=== PATIENT | female | born 1965 | race Caucasian/White ===

== ENCOUNTER 2016-12-12 17:30 | Inpatient (IN) | payer MEDICARE, MEDICAID ==
[~2016-12-12] VITALS: Ht 157.5 cm; Wt 81.6 kg
[~2016-12-12 17:30] MED LIST: ASPIRIN81 MG ORAL; FAMOTIDINE20 MG ORAL; FLECAINIDE ACE100 MG ORAL; GABAPENTIN300 MG ORAL; IRON159 MG PO; LEVEMIR100 UNIT/1 SUBQ; LISINOPRIL20 MG ORAL; METOPROLOL SUC100 MG ORAL; METOPROLOL SUCC50 MG ORAL; MULTIVITAMINS1 EA14 PO; PRAVASTATIN SOD20 M1 ORAL; PREMARIN0.9 MG ORAL; PROVERA2.5 MG ORAL; SPIRONOLACTONE50 MG ORAL; VICTOZA 2-0.6 MG/0.1 SUBQ
--- NOTE | 2016-12-12 18:33 | Emergency Room Report ---
History of Present Illness General Chief Complaint: General Complaint Source: Patient Present Illness HPI Patient present with complaints of dizziness Lightheadedness Patient has a history of hypertension and is on lisinopril Today she began feeling lightheaded and took her blood pressure Blood pressure was reading very low in the 80s Patient continued to be symptomatic and presents to the ER complaints of nausea denies any chest pain or short of breath Denies any fevers or chills denies any change in medications Allergies: Coded Allergies: SUMATRIPTAN (Verified Allergy, Unknown, 04/18/16) Uncoded Allergies: ARTIFICIAL SWEETNERS (Allergy, Unknown, 04/18/16) Patient History Past Medical History: see triage record Pertinent Family History: none Last Menstrual Period: n/a Now: No Reviewed Nursing Documentation: PMH: Agreed, PSxH: Agreed Nursing Documentation-PMH Past Medical History: No History, Except For Hx Cardiac Problems: Yes - aicdmi Hx Hypertension: Yes Hx Pacemaker: Yes - AICD Hx Diabetes: Yes Hx Cancer: No Hx Gastrointestinal Problems: No Hx Neurological Problems: No Review of Systems All Other Systems: negative except mentioned in HPI Physical Exam Vital Signs Date Time Temp Pulse Resp B/P Pulse Ox O2 Delivery O2 Flow Rate FiO2 12/12/16 17:43 98.1 73 18 84/62 96 Room Air Sp02 EP Interpretation: reviewed, normal General Appearance: well appearing, no apparent distress Head: normocephalic, atraumatic Eyes: bilateral eye EOMI, bilateral eye PERRL ENT: hearing grossly normal, normal pharynx, TMs + canals normal, uvula midline Neck: full range of motion, supple, no meningismus, no bony tend Respiratory: lungs clear, normal breath sounds, no rhonchi, no respiratory distress, no retraction, no accessory muscle use Cardiovascular #1: normal peripheral pulses, regular rate, rhythm, no edema, no gallop, no JVD, no murmur Gastrointestinal: normal bowel sounds, non tender, soft, no mass, no organomegaly, non-distended, no guarding, no hernia, no pulsatile mass, no rebound Genitourinary: no CVA tenderness Musculoskeletal: normal inspection Neurologic: oriented x3, responsive, network analyst III-XII nml as tested, motor strength/ tone normal, sensory intact Psychiatric: mood/affect normal Skin: normal color, no rash, warm/dry, palpation normal Lymphatic: normal inspection, no adenopathy Medical Decision Making Diagnostic Impression: Primary Impression: Hypotension Additional Impressions: AICD present, double chamber Prolonged QT interval ER Course Patient is a fairly complex patient with multiple differential to consideration including but not limited to cardiac cardiopulmonary and vascular emergencies Patient otherwise appears asymptomatic Heart rate is appropriate Patient does not appear pale or diaphoretic She is symptomatic with standing and walking however Blood work thus far is appropriate imaging is appropriate Patient was given further hydration and will have inpatient workup Labs Test 12/12/16 17:50 12/12/16 18:30 12/13/16 06:45 12/13/16 08:30 Urine Opiates Screen Negative (NEGATIVE) Urine Barbiturates Screen Negative (NEGATIVE) Phencyclidine (PCP) Screen Negative (NEGATIVE) Urine Amphetamines Screen Positive (NEGATIVE) Urine Benzodiazepines Screen Negative (NEGATIVE) Urine Cocaine Screen Negative (NEGATIVE) Urine Marijuana (THC) Screen Negative (NEGATIVE) White Blood Count 9.2 K/UL (4.8-10.8) 9.1 K/UL (4.8-10.8) Red Blood Count 4.23 M/UL (4.20-5.40) 3.73 M/UL (4.20-5.40) Hemoglobin 13.8 G/DL (12.0-16.0) 12.5 G/DL (12.0-16.0) Hematocrit 41.3 % (37.0-47.0) 36.5 % (37.0-47.0) Mean Corpuscular Volume 98 FL (80-99) 98 FL (80-99) Mean Corpuscular Hemoglobin 32.7 PG (27.0-31.0) 33.5 PG (27.0-31.0) Mean Corpuscular Hemoglobin Concent 33.5 G/DL (32.0-36.0) 34.2 G/DL (32.0-36.0) Red Cell Distribution Width 11.2 % (11.6-14.8) 11.1 % (11.6-14.8) Platelet Count 338 K/UL (150-450) 265 K/UL (150-450) Mean Platelet Volume 5.8 FL (6.5-10.1) 5.9 FL (6.5-10.1) Neutrophils (%) (Auto) 69.7 % (45.0-75.0) 56.2 % (45.0-75.0) Lymphocytes (%) (Auto) 18.6 % (20.0-45.0) 31.9 % (20.0-45.0) Monocytes (%) (Auto) 8.8 % (1.0-10.0) 9.4 % (1.0-10.0) Eosinophils (%) (Auto) 1.4 % (0.0-3.0) 1.2 % (0.0-3.0) Basophils (%) (Auto) 1.5 % (0.0-2.0) 1.3 % (0.0-2.0) Prothrombin Time 9.7 SEC (9.30-11.50) Prothromb Time International Ratio 1.0 (0.9-1.1) Activated Partial Thromboplast Time 23 SEC (23-33) Sodium Level 136 mEQ/L (135-145) 139 mEQ/L (135-145) Potassium Level 4.6 mEQ/L (3.4-4.9) 4.2 mEQ/L (3.4-4.9) Chloride Level 95 mEQ/L (98-107) 99 mEQ/L (98-107) Carbon Dioxide Level 26 mEQ/L (20-30) 26 mEQ/L (20-30) Anion Gap 15 (5-15) 14 (5-15) Blood Urea Nitrogen 25 mg/dL (7-23) 22 mg/dL (7-23) Creatinine 1.4 mg/dL (0.5-0.9) 1.1 mg/dL (0.5-0.9) Estimat Glomerular Filtration Rate 40.0 mL/min (>60) 52.8 mL/min (>60) Glucose Level 299 mg/dL (74-106) 222 mg/dL (74-106) Calcium Level 9.7 mg/dL (8.6-10.2) 8.8 mg/dL (8.6-10.2) Total Bilirubin 0.2 mg/dL (0.0-1.2) 0.2 mg/dL (0.0-1.2) Aspartate Amino Transf (AST/SGOT) 13 U/L (5-40) 11 U/L (5-40) Alanine Aminotransferase (ALT/SGPT) 15 U/L (3-33) 12 U/L (3-33) Alkaline Phosphatase 67 U/L (35-104) 61 U/L (35-104) Total Creatine Kinase 64 U/L (26-140) Creatine Kinase MB < 1.5 ng/mL (< 3.8) Creatine Kinase MB Relative Index 2.3 Troponin I < 0.30 ng/mL (<=0.30) Pro-B-Type Natriuretic Peptide 54 pg/mL (0-125) Total Protein 6.8 g/dL (6.6-8.7) 6.0 g/dL (6.6-8.7) Albumin 4.4 g/dL (3.5-5.2) 4.0 g/dL (3.5-5.2) Globulin 2.4 g/dL 2.0 g/dL Albumin/Globulin Ratio 1.8 (1.0-2.7) 2.0 (1.0-2.7) Lipase 10 U/L (< 60) Triglycerides Level 193 mg/dL (< 150) Cholesterol Level 244 mg/dL (< 200) LDL Cholesterol 138 mg/dL (60-99) HDL Cholesterol 67 mg/dL (> 60) Cholesterol/HDL Ratio 3.6 (3.3-4.4) Thyroid Stimulating Hormone (TSH) 0.563 uIU/mL (0.300-4.500) Urine Color Yellow Urine Appearance Clear Urine pH 6.5 (4.5-8.0) Urine Specific [place] 1.015 (1.005-1.035) Urine Protein 1+ (NEGATIVE) Urine Glucose (UA) 4+ (NEGATIVE) Urine Ketones Negative (NEGATIVE) Urine Occult Blood Negative (NEGATIVE) Urine Nitrite Negative (NEGATIVE) Urine Bilirubin Negative (NEGATIVE) Urine Urobilinogen Normal MG/DL (0.0-1.0) Urine Leukocyte Esterase Negative (NEGATIVE) Urine RBC 0-2 /HPF (0 - 2) Urine WBC 0-2 /HPF (0 - 2) Urine Squamous Epithelial Cells Occasional /LPF Urine Bacteria Few /HPF (NONE) EKG Diagnostic Results Rate: normal Rhythm: other - paced ST Segments: other Rhythm Strip Diag. Results EP Interpretation: yes Rate: 67 Rhythm: NSR, no PVC's, no ectopy Chest X-Ray Diagnostic Results EP Interpretation: Yes Findings: no consolidation, no effusion, no pneumothorax Number of Views: 1 Last Vital Signs Date Time Temp Pulse Resp B/P Pulse Ox O2 Delivery O2 Flow Rate FiO2 12/12/16 17:43 98.1 73 18 84/62 96 Room Air Status: improved Disposition: ADMITTED INPATIENT Condition: Serious Referrals: NON PHYSICIAN (PCP) TERESA BALES D.O. Dec 12, 2016 18:33
[2016-12-12 18:39] VITALS: BP 85/64
[2016-12-12 18:46] LABS: BASOPHILS % (AUTO) 1.5 % (0.0-2.0); EOSINOPHILS % (AUTO) 1.4 % (0.0-3.0); LYMPHOCYTES % (AUTO) 18.6 % (20.0-45.0); MEAN CORPUSCULAR HEMOGLOBIN 32.7 PG (27.0-31.0); MEAN CORPUSCULAR HGB CONC 33.5 G/DL (32.0-36.0); MEAN CORPUSCULAR VOLUME 98 FL (80-99); MEAN PLATELET VOLUME 5.8 FL (6.5-10.1); MONOCYTES % (AUTO) 8.8 % (1.0-10.0); NEUTROPHILS % (AUTO) 69.7 % (45.0-75.0); PLATELET COUNT 338 K/UL (150-450); RED BLOOD COUNT 4.23 M/UL (4.20-5.40); RED CELL DISTRIBUTION WIDTH 11.2 % (11.6-14.8); WHITE BLOOD COUNT 9.2 K/UL (4.8-10.8)
[2016-12-12] MEDS ORDERED: PRAVASTATIN SOD20 M1 ORAL (18:50)
[2016-12-12 18:59] LABS: PROTHROMBIN TIME 9.7 SEC (9.30-11.50)
[2016-12-12 19:01] LABS: ALANINE AMINOTRANSFERASE 15 U/L (3-33); ALBUMIN/GLOBULIN RATIO 1.8 (1.0-2.7); ANION GAP 15 (5-15); ASPARTATE AMINO TRANSFERASE 13 U/L (5-40); CALCIUM 9.7 mg/dL (8.6-10.2); CARBON DIOXIDE 26 mEQ/L (20-30); CHLORIDE 95 mEQ/L (98-107); CREATININE 1.4 mg/dL (0.5-0.9); HEMOLYSIS 4; LIPASE 10 U/L (< 60); POTASSIUM 4.6 mEQ/L (3.4-4.9); SODIUM 136 mEQ/L (135-145); TOTAL PROTEIN 6.8 g/dL (6.6-8.7); TROPONIN I < 0.30 ng/mL (<=0.30)
[2016-12-12 19:12] LABS: CKMB < 1.5 ng/mL (< 3.8)
[2016-12-12 19:28] VITALS: BP 90/62
[2016-12-12 20:34] VITALS: BP 86/52
[2016-12-12] MEDS ORDERED: Miralax 17gm pkt ORAL PRN (21:45)
[2016-12-12] MEDS ORDERED: Mylanta II UD 30ml ORAL PRN (21:45)
[2016-12-12] MEDS ORDERED: Zolpidem 5mg tab ORAL PRN (21:45)
[2016-12-12 21:47] VITALS: BP 124/66
[2016-12-12 21:54] VITALS: BP 92/63
[2016-12-12] MEDS: Morphine Sulfate 2mg/ml Inj IVP PRN (23:22)
[2016-12-13] VITALS: BP 103/75
[2016-12-13] MEDS: Morphine Sulfate 2mg/ml Inj IVP PRN ×2 (03:28→18:16)
[2016-12-13 04:10] VITALS: BP 106/56
[2016-12-13] MEDS: NovoLOG Insulin Flexpen SUBQ SCH ×4 (06:36→20:57)
[2016-12-13 07:26] LABS: BASOPHILS % (AUTO) 1.3 % (0.0-2.0); EOSINOPHILS % (AUTO) 1.2 % (0.0-3.0); LYMPHOCYTES % (AUTO) 31.9 % (20.0-45.0); MEAN CORPUSCULAR HEMOGLOBIN 33.5 PG (27.0-31.0); MEAN CORPUSCULAR HGB CONC 34.2 G/DL (32.0-36.0); MEAN CORPUSCULAR VOLUME 98 FL (80-99); MEAN PLATELET VOLUME 5.9 FL (6.5-10.1); MONOCYTES % (AUTO) 9.4 % (1.0-10.0); NEUTROPHILS % (AUTO) 56.2 % (45.0-75.0); PLATELET COUNT 265 K/UL (150-450); RED BLOOD COUNT 3.73 M/UL (4.20-5.40); RED CELL DISTRIBUTION WIDTH 11.1 % (11.6-14.8); WHITE BLOOD COUNT 9.1 K/UL (4.8-10.8)
[2016-12-13 07:39] LABS: CALCIUM 8.8 mg/dL (8.6-10.2); CHOLESTEROL/HDL RATIO 3.6 (3.3-4.4); CREATININE 1.1 mg/dL (0.5-0.9); GLOMERULAR FILTRATION RATE 52.8 mL/min (>60); POTASSIUM 4.2 mEQ/L (3.4-4.9)
[2016-12-13 07:43] LABS: THYROID STIMULATING HORMONE 0.563 uIU/mL (0.300-4.500)
[2016-12-13 07:46] VITALS: BP 109/68
--- NOTE | 2016-12-13 09:42 | Diagnostic Imaging Report ---
Indication: Chest pain Technique: One view of the chest Comparison: 04/18/2016 Findings: Lungs and pleural spaces are clear. Normal heart size. There is a left chest AICD. No significant interim change Impression: No acute process
[2016-12-13 10:19] LABS: APPEARANCE,URINE CLEAR; KETONES,URINE NEGATIVE (NEGATIVE); LEUKOCYTE ESTERASE ,URINE NEGATIVE (NEGATIVE); NITRITE,URINE NEGATIVE (NEGATIVE); PH,URINE 6.5 (4.5-8.0); PROTEIN,URINE 1+ (NEGATIVE); UROBILINOGEN,URINE NORMAL MG/DL (0.0-1.0)
[2016-12-13 11:10] LABS: BACTERIA,URINE FEW /HPF; RBC,URINE 0-2 /HPF (0 - 2); SQUAMOUS EPITHELIAL CELL,UR OCCASIONAL /LPF (NONE/OCC); WBC,URINE 0-2 /HPF (0 - 2)
[2016-12-13 11:26] VITALS: BP 113/80
--- NOTE | 2016-12-13 13:22 | History and Physical ---
History of Present Illness General Date patient seen: Dec 13, 2016 Reason for Hospitalization: General Complaint Present Illness HPI 51 year of female with hx of ICD, htn presented with complaints of dizziness, lightheadedness. She started the day yesterday with dizziness and nausea her Blood pressure was reading very low in the 80s She was evaluated in ER and admitted to [facility] for persistent hypotension. Allergies: Coded Allergies: SUMATRIPTAN (Verified Allergy, Unknown, 04/18/16) Uncoded Allergies: ARTIFICIAL SWEETNERS (Allergy, Unknown, 04/18/16) Medication History Scheduled Aspirin* (Aspirin*), 81 MG ORAL DAILY, (Reported) Estrogens, Conjugated (Premarin), 0.3 MG ORAL DAILY, (Reported) Famotidine (Famotidine), 20 MG ORAL DAILY, (Reported) Flecainide Acetate (Flecainide Acetate*), 150 MG ORAL BID, (Reported) Gabapentin* (Gabapentin*), 300 MG ORAL THREE TIMES A DAY, (Reported) Insulin Detemir (Levemir), 30 SUBQ DAILY, (Reported) Liraglutide (Victoza 2-German), 1.8 MG SUBQ DAILY, (Reported) Liraglutide (Victoza 2-German), Unknown Dose SUBQ DAILY, (Reported) Lisinopril (Lisinopril*), 20 MG ORAL DAILY, (Reported) Lisinopril (Lisinopril*), 20 MG ORAL Q12HR Medroxyprogesterone Acet* (Provera*), 2.5 MG ORAL DAILY, (Reported) Metoprolol Succinate* (Metoprolol Succinate*), 150 MG ORAL BID, (Reported) Metoprolol Succinate* (Metoprolol Succinate*), 50 MG ORAL DAILY, (Reported) Pravastatin Sod* (Pravastatin Sod*), 20 MG ORAL BEDTIME, (Reported) Pravastatin Sod* (Pravastatin Sod*), 20 MG ORAL BEDTIME, (Reported) Spironolactone* (Aldactone*), 50 MG ORAL DAILY, (Reported) Miscellaneous Medications Ferrous Sulfate, Dried (Iron), 65 MG PO, (Reported) Multivitamin (Multivitamins), 1 EACH PO, (Reported) Patient History History Provided By: Patient Healthcare decision maker pt alert and oriented Resuscitation status Full Code Advanced Directive on File Past Medical/Surgical History Past Medical/Surgical History: (1) AICD present, double chamber Review of Systems All Other Systems: negative except mentioned in HPI Physical Exam General Appearance: WD/WN Lines, tubes and drains: peripheral, central line HEENT: normocephalic, atraumatic Neck: non-tender, normal alignment Respiratory/Chest: chest wall non-tender, lungs clear Cardiovascular/Chest: normal peripheral pulses Last 24 Hour Vital Signs Date Time Temp Pulse Resp B/P Pulse Ox O2 Delivery O2 Flow Rate FiO2 12/13/16 11:26 96.9 69 18 113/80 98 Room Air 12/13/16 11:10 96.9 12/13/16 08:00 70 12/13/16 07:46 97.3 70 18 109/68 98 Room Air 12/13/16 04:10 98.0 72 20 106/56 96 Room Air 12/13/16 04:00 70 12/13/16 00:00 97.7 70 20 103/75 98 Room Air 12/12/16 22:30 98.2 70 18 92/63 100 Room Air 2.0 12/12/16 21:54 70 18 92/63 100 Room Air 12/12/16 21:47 98.2 82 22 124/66 96 Nasal Cannula 2.0 12/12/16 20:34 70 23 86/52 97 Room Air 12/12/16 19:28 70 16 90/62 97 Room Air 12/12/16 18:39 70 18 85/64 96 Room Air 12/12/16 17:43 98.1 73 18 84/62 96 Room Air Intake and Output 12/12/16 12/13/16 19:00 07:00 Intake Total 50 ml Balance 50 ml Intake Oral 50 ml # Voids 1 Laboratory Tests Test 12/12/16 17:50 12/12/16 18:30 12/13/16 06:45 12/13/16 08:30 Urine Opiates Screen Negative (NEGATIVE) Urine Barbiturates Screen Negative (NEGATIVE) Phencyclidine (PCP) Screen Negative (NEGATIVE) Urine Amphetamines Screen Positive (NEGATIVE) H Urine Benzodiazepines Screen Negative (NEGATIVE) Urine Cocaine Screen Negative (NEGATIVE) Urine Marijuana (THC) Screen Negative (NEGATIVE) White Blood Count 9.2 K/UL (4.8-10.8) 9.1 K/UL (4.8-10.8) Red Blood Count 4.23 M/UL (4.20-5.40) 3.73 M/UL (4.20-5.40) L Hemoglobin 13.8 G/DL (12.0-16.0) 12.5 G/DL (12.0-16.0) Hematocrit 41.3 % (37.0-47.0) 36.5 % (37.0-47.0) L Mean Corpuscular Volume 98 FL (80-99) 98 FL (80-99) Mean Corpuscular Hemoglobin 32.7 PG (27.0-31.0) H 33.5 PG (27.0-31.0) H Mean Corpuscular Hemoglobin Concent 33.5 G/DL (32.0-36.0) 34.2 G/DL (32.0-36.0) Red Cell Distribution Width 11.2 % (11.6-14.8) L 11.1 % (11.6-14.8) L Platelet Count 338 K/UL (150-450) 265 K/UL (150-450) Mean Platelet Volume 5.8 FL (6.5-10.1) L 5.9 FL (6.5-10.1) L Neutrophils (%) (Auto) 69.7 % (45.0-75.0) 56.2 % (45.0-75.0) Lymphocytes (%) (Auto) 18.6 % (20.0-45.0) L 31.9 % (20.0-45.0) Monocytes (%) (Auto) 8.8 % (1.0-10.0) 9.4 % (1.0-10.0) Eosinophils (%) (Auto) 1.4 % (0.0-3.0) 1.2 % (0.0-3.0) Basophils (%) (Auto) 1.5 % (0.0-2.0) 1.3 % (0.0-2.0) Prothrombin Time 9.7 SEC (9.30-11.50) Prothromb Time International Ratio 1.0 (0.9-1.1) Activated Partial Thromboplast Time 23 SEC (23-33) Sodium Level 136 mEQ/L (135-145) 139 mEQ/L (135-145) Potassium Level 4.6 mEQ/L (3.4-4.9) 4.2 mEQ/L (3.4-4.9) Chloride Level 95 mEQ/L (98-107) L 99 mEQ/L (98-107) Carbon Dioxide Level 26 mEQ/L (20-30) 26 mEQ/L (20-30) Anion Gap 15 (5-15) 14 (5-15) Blood Urea Nitrogen 25 mg/dL (7-23) H 22 mg/dL (7-23) Creatinine 1.4 mg/dL (0.5-0.9) H 1.1 mg/dL (0.5-0.9) H Estimat Glomerular Filtration Rate 40.0 mL/min (>60) 52.8 mL/min (>60) Glucose Level 299 mg/dL (74-106) H 222 mg/dL (74-106) H Calcium Level 9.7 mg/dL (8.6-10.2) 8.8 mg/dL (8.6-10.2) Total Bilirubin 0.2 mg/dL (0.0-1.2) 0.2 mg/dL (0.0-1.2) Aspartate Amino Transf (AST/SGOT) 13 U/L (5-40) 11 U/L (5-40) Alanine Aminotransferase (ALT/SGPT) 15 U/L (3-33) 12 U/L (3-33) Alkaline Phosphatase 67 U/L (35-104) 61 U/L (35-104) Total Creatine Kinase 64 U/L (26-140) Creatine Kinase MB < 1.5 ng/mL (< 3.8) Creatine Kinase MB Relative Index 2.3 Troponin I < 0.30 ng/mL (<=0.30) Pro-B-Type Natriuretic Peptide 54 pg/mL (0-125) Total Protein 6.8 g/dL (6.6-8.7) 6.0 g/dL (6.6-8.7) L Albumin 4.4 g/dL (3.5-5.2) 4.0 g/dL (3.5-5.2) Globulin 2.4 g/dL 2.0 g/dL Albumin/Globulin Ratio 1.8 (1.0-2.7) 2.0 (1.0-2.7) Lipase 10 U/L (< 60) Triglycerides Level 193 mg/dL (< 150) H Cholesterol Level 244 mg/dL (< 200) H LDL Cholesterol 138 mg/dL (60-99) H HDL Cholesterol 67 mg/dL (> 60) H Cholesterol/HDL Ratio 3.6 (3.3-4.4) Thyroid Stimulating Hormone (TSH) 0.563 uIU/mL (0.300-4.500) Urine Color Yellow Urine Appearance Clear Urine pH 6.5 (4.5-8.0) Urine Specific [place] 1.015 (1.005-1.035) Urine Protein 1+ (NEGATIVE) H Urine Glucose (UA) 4+ (NEGATIVE) H Urine Ketones Negative (NEGATIVE) Urine Occult Blood Negative (NEGATIVE) Urine Nitrite Negative (NEGATIVE) Urine Bilirubin Negative (NEGATIVE) Urine Urobilinogen Normal MG/DL (0.0-1.0) Urine Leukocyte Esterase Negative (NEGATIVE) Urine RBC 0-2 /HPF (0 - 2) Urine WBC 0-2 /HPF (0 - 2) Urine Squamous Epithelial Cells Occasional /LPF Urine Bacteria Few /HPF (NONE) Height (Feet): 5 Height (Inches): 2.00 Weight (Pounds): 180 Medications Current Medications Medications (Trade) Dose Ordered Sig/Shawn Route PRN Reason Start Time Stop Time Status Last Admin Dose Admin Acetaminophen (Tylenol) 650 mg Q4H PRN ORAL fever 12/12/16 21:45 01/11/17 21:44 Al Hydroxide/Mg Hydroxide (Mylanta II) 30 ml Q6H PRN ORAL dyspepsia 12/12/16 21:45 01/11/17 21:44 Dextrose (Dextrose 50%) STAT PRN IV Hypoglycemia 12/12/16 21:45 01/11/17 21:44 Gabapentin (Neurontin) 300 mg THREE TIMES A DAY ORAL 12/13/16 09:00 01/12/17 08:59 12/13/16 12:21 Insulin Aspart (NovoLOG) BEFORE MEALS AND HS SUBQ 12/13/16 06:30 01/12/17 06:29 12/13/16 12:22 Lorazepam (Ativan 2mg/ml 1ml) 0.5 mg Q4H PRN IV For Anxiety 12/12/16 21:45 12/19/16 21:44 Morphine Sulfate (Morphine Sulfate) 1 mg EVERY 4 HOURS PRN IVP For Pain 12/12/16 21:45 12/19/16 21:44 12/13/16 03:28 Ondansetron HCl (Zofran) 4 mg Q6H PRN IVP Nausea & Vomiting 12/12/16 21:45 01/11/17 21:44 Oxycodone/ Acetaminophen (Percocet 10/325) 1 tab Q4H PRN ORAL Breakthrough Pain 12/13/16 08:30 12/20/16 08:29 12/13/16 10:06 Polyethylene Glycol (Miralax) 17 gm HSPRN PRN ORAL Constipation 12/12/16 21:45 01/11/17 21:44 Pravastatin Sodium (Pravachol) 20 mg BEDTIME ORAL 12/13/16 21:00 01/12/17 20:59 Zolpidem Tartrate (Ambien) 5 mg HSPRN PRN ORAL Insomnia 12/12/16 21:45 01/11/17 21:44 Assessment/Plan Problem List: (1) Hypotension ICD Codes: I95.9 - Hypotension, unspecified SNOMED: 04718379 (2) AICD (automatic cardioverter/defibrillator) present ICD Codes: Z95.810 - Presence of automatic (implantable) cardiac defibrillator SNOMED: 28938594, 181008363 (3) ACS (acute coronary syndrome) ICD Codes: I24.9 - Acute ischemic heart disease, unspecified SNOMED: 742112672 Assessment/Plan telemetry check ICD cardio evaluation hold some of the antihypertensive meds JIM GERARDO Dec 13, 2016 13:22
--- NOTE | 2016-12-13 14:42 | Cardiology Progress Note ---
Assessment/Plan Assessment/Plan symptomatic acute vertigo nausea and vomiting related to above hypotension related to comb of meds adn volume depletion dm htn hx renal insuf long qt syndrome s/p icd no icd dc orthostatitc vital stacie be chekced dialy to see if ivf need to be dc [id number] Objective Last 24 Hour Vital Signs Date Time Temp Pulse Resp B/P Pulse Ox O2 Delivery O2 Flow Rate FiO2 12/13/16 11:26 96.9 69 18 113/80 98 Room Air 12/13/16 11:10 96.9 12/13/16 08:00 70 12/13/16 07:46 97.3 70 18 109/68 98 Room Air 12/13/16 04:10 98.0 72 20 106/56 96 Room Air 12/13/16 04:00 70 12/13/16 00:00 97.7 70 20 103/75 98 Room Air 12/12/16 22:30 98.2 70 18 92/63 100 Room Air 2.0 12/12/16 21:54 70 18 92/63 100 Room Air 12/12/16 21:47 98.2 82 22 124/66 96 Nasal Cannula 2.0 12/12/16 20:34 70 23 86/52 97 Room Air 12/12/16 19:28 70 16 90/62 97 Room Air 12/12/16 18:39 70 18 85/64 96 Room Air 12/12/16 17:43 98.1 73 18 84/62 96 Room Air Intake and Output 12/12/16 12/13/16 19:00 07:00 Intake Total 50 ml Balance 50 ml Intake Oral 50 ml # Voids 1 Laboratory Tests Test 12/12/16 17:50 12/12/16 18:30 12/13/16 06:45 12/13/16 08:30 Urine Opiates Screen Negative (NEGATIVE) Urine Barbiturates Screen Negative (NEGATIVE) Phencyclidine (PCP) Screen Negative (NEGATIVE) Urine Amphetamines Screen Positive (NEGATIVE) H Urine Benzodiazepines Screen Negative (NEGATIVE) Urine Cocaine Screen Negative (NEGATIVE) Urine Marijuana (THC) Screen Negative (NEGATIVE) White Blood Count 9.2 K/UL (4.8-10.8) 9.1 K/UL (4.8-10.8) Red Blood Count 4.23 M/UL (4.20-5.40) 3.73 M/UL (4.20-5.40) L Hemoglobin 13.8 G/DL (12.0-16.0) 12.5 G/DL (12.0-16.0) Hematocrit 41.3 % (37.0-47.0) 36.5 % (37.0-47.0) L Mean Corpuscular Volume 98 FL (80-99) 98 FL (80-99) Mean Corpuscular Hemoglobin 32.7 PG (27.0-31.0) H 33.5 PG (27.0-31.0) H Mean Corpuscular Hemoglobin Concent 33.5 G/DL (32.0-36.0) 34.2 G/DL (32.0-36.0) Red Cell Distribution Width 11.2 % (11.6-14.8) L 11.1 % (11.6-14.8) L Platelet Count 338 K/UL (150-450) 265 K/UL (150-450) Mean Platelet Volume 5.8 FL (6.5-10.1) L 5.9 FL (6.5-10.1) L Neutrophils (%) (Auto) 69.7 % (45.0-75.0) 56.2 % (45.0-75.0) Lymphocytes (%) (Auto) 18.6 % (20.0-45.0) L 31.9 % (20.0-45.0) Monocytes (%) (Auto) 8.8 % (1.0-10.0) 9.4 % (1.0-10.0) Eosinophils (%) (Auto) 1.4 % (0.0-3.0) 1.2 % (0.0-3.0) Basophils (%) (Auto) 1.5 % (0.0-2.0) 1.3 % (0.0-2.0) Prothrombin Time 9.7 SEC (9.30-11.50) Prothromb Time International Ratio 1.0 (0.9-1.1) Activated Partial Thromboplast Time 23 SEC (23-33) Sodium Level 136 mEQ/L (135-145) 139 mEQ/L (135-145) Potassium Level 4.6 mEQ/L (3.4-4.9) 4.2 mEQ/L (3.4-4.9) Chloride Level 95 mEQ/L (98-107) L 99 mEQ/L (98-107) Carbon Dioxide Level 26 mEQ/L (20-30) 26 mEQ/L (20-30) Anion Gap 15 (5-15) 14 (5-15) Blood Urea Nitrogen 25 mg/dL (7-23) H 22 mg/dL (7-23) Creatinine 1.4 mg/dL (0.5-0.9) H 1.1 mg/dL (0.5-0.9) H Estimat Glomerular Filtration Rate 40.0 mL/min (>60) 52.8 mL/min (>60) Glucose Level 299 mg/dL (74-106) H 222 mg/dL (74-106) H Calcium Level 9.7 mg/dL (8.6-10.2) 8.8 mg/dL (8.6-10.2) Total Bilirubin 0.2 mg/dL (0.0-1.2) 0.2 mg/dL (0.0-1.2) Aspartate Amino Transf (AST/SGOT) 13 U/L (5-40) 11 U/L (5-40) Alanine Aminotransferase (ALT/SGPT) 15 U/L (3-33) 12 U/L (3-33) Alkaline Phosphatase 67 U/L (35-104) 61 U/L (35-104) Total Creatine Kinase 64 U/L (26-140) Creatine Kinase MB < 1.5 ng/mL (< 3.8) Creatine Kinase MB Relative Index 2.3 Troponin I < 0.30 ng/mL (<=0.30) Pro-B-Type Natriuretic Peptide 54 pg/mL (0-125) Total Protein 6.8 g/dL (6.6-8.7) 6.0 g/dL (6.6-8.7) L Albumin 4.4 g/dL (3.5-5.2) 4.0 g/dL (3.5-5.2) Globulin 2.4 g/dL 2.0 g/dL Albumin/Globulin Ratio 1.8 (1.0-2.7) 2.0 (1.0-2.7) Lipase 10 U/L (< 60) Triglycerides Level 193 mg/dL (< 150) H Cholesterol Level 244 mg/dL (< 200) H LDL Cholesterol 138 mg/dL (60-99) H HDL Cholesterol 67 mg/dL (> 60) H Cholesterol/HDL Ratio 3.6 (3.3-4.4) Thyroid Stimulating Hormone (TSH) 0.563 uIU/mL (0.300-4.500) Urine Color Yellow Urine Appearance Clear Urine pH 6.5 (4.5-8.0) Urine Specific [place] 1.015 (1.005-1.035) Urine Protein 1+ (NEGATIVE) H Urine Glucose (UA) 4+ (NEGATIVE) H Urine Ketones Negative (NEGATIVE) Urine Occult Blood Negative (NEGATIVE) Urine Nitrite Negative (NEGATIVE) Urine Bilirubin Negative (NEGATIVE) Urine Urobilinogen Normal MG/DL (0.0-1.0) Urine Leukocyte Esterase Negative (NEGATIVE) Urine RBC 0-2 /HPF (0 - 2) Urine WBC 0-2 /HPF (0 - 2) Urine Squamous Epithelial Cells Occasional /LPF Urine Bacteria Few /HPF (NONE) KUMAR CARTER Dec 13, 2016 14:42
[2016-12-13 16:00] VITALS: BP 114/81
[2016-12-13] MEDS: Aspirin Baby 81mg ORAL SCH (17:14)
--- NOTE | 2016-12-13 19:18 | Consultation ---
DATE OF CONSULTATION: CONSULTING PHYSICIAN: Casper Drake M.D. REFERRING PHYSICIAN: Nallely Sullivan M.D. REASON FOR REFERRAL: Hypotension. HISTORY OF PRESENT ILLNESS: This is unfortunate young female who has a history of a prolonged QT who required intracardiac defibrillator placement for which she reportedly got 29 shocks and subsequently had her defibrillator changed back in April and since April has not had any further shocks. She indicates that as of Monday started having some problems with dizziness, nausea, and a lot of vomiting, and dizziness. She describes as room spinning sensation and inability to focus with her. She really has not had in terms of any chest pain. She does not have any shortness of breath. No PND. She uses two to three pillows for her comfort spine problem including reading issues. She has had some dizziness when she sits up or stands up and occasional palpitations. PAST MEDICAL HISTORY: She has had a prolonged QT. She is a diabetic, hypertensive, and hyperlipidemic. She was previously told that she may have had a "heart attack" although she has had a cardiac catheterization according to herself. No abnormalities were found. She did not have angioplasty or stent or bypass surgery. No cancer, stroke, hepatitis, or tuberculosis. No asthma. No emphysema. No stomach ulcers. She has had kidney stones. No liver problems and thyroid problems. She has had some anemia. She has some arthritis of her spine. No gynecological problems. No human immunodeficiency virus or blood clots. ALLERGIES: As listed as sumatriptan although she denies. SOCIAL HISTORY: She does not smoke or drink or use drugs. She used to smoke previously, but she quit 18 years ago. No alcohol. REVIEW OF SYSTEMS: Gastrointestinal: As mentioned with nausea and vomiting. No diarrhea. No black or bloody stools. Genitourinary: Negative. Pulmonary: Negative. Constitutional: She has had some sweats at night. Neurologic: No new symptoms. Musculoskeletal: She has some back pain. PHYSICAL EXAMINATION: GENERAL: Shows be overweight young female in no apparent respiratory distress. VITAL SIGNS: At the time of admission on 12/12/2016, she had blood pressure as low as 84/62 and a most recent blood pressure 113/80. Her heart rates during this hospitalization has been in the 70s. HEENT: Unremarkable. NECK: Supple. No jugular venous distention. LUNGS: Clear to auscultation and percussion. CARDIAC: S1 is normal. S2 is normal. Regular rate and rhythm. No heaves. No thrills. No gallops. No rubs are noted. ABDOMEN: Soft and nontender. Positive bowel sounds. EXTREMITIES: There is no clubbing, cyanosis, nor is there any edema. LABORATORY VALUES: Her white count is 9, hemoglobin 12.5, and platelet count of 265,000. Her sodium is 139, potassium 4.2, chloride 99, bicarbonate 26, BUN of 22, creatinine 1.1, and glucose of 222. Her creatinine was as high as 1.4 at time of her original admission at this time in that way on prior occasion in 2016. Her total cholesterol is 244 with a LDL of 138, an HDL of 67, and triglycerides of 192. TSH is 0.56. Her troponin was negative on one occasion and her coagulations, INR 1.1 and a PTT of 23. Her toxicology screen positive for amphetamines. Her urine shows 4+ glucose. Her telemetry data shows sinus rhythm. She has not had an EKG performed unfortunately that I am able to locate. The chest x-ray shows intracardiac defibrillator placement. Otherwise, negative acute processes. Her last echocardiogram here was performed in last year showing ejection fraction of 50 to 55%. No other significant abnormalities with mild left ventricular hypertrophy being noted. ASSESSMENT: 1. Symptomatic acute vertigo. 2. Nausea and vomiting related to above. 3. Hypotension probably related to a combination of medications as well as volume depletion from above. 4. Diabetes mellitus. 5. History of hypertension. 6. Renal insufficiency. 7. Long QT syndrome, status post intracardiac defibrillator. PLAN: Dr. Sullivan, this patient was seen in cardiac consultation. The patient's blood pressure was quite low at the time of admission. She has been on several blood pressure medication, which is likely contributing to in addition to the volume depletion from her vomiting and nausea. The nausea and vomiting subsided but the vertigo is still present and still has a slight amount of dizziness with lightheadedness although the vertigo is not as severe. Her blood pressure seems to be improving gradually. She should be continued on intravenous fluids and once the blood pressure starts increasing then she should be resumed gradually back on her blood pressure medications. She has had some problems with walking still to the bathroom although she has been able to do that. Her blood pressure does not appear to be as low. Orthostatic vitals will be checked daily to see if intravenous fluids need to be discontinued. She is instructed to follow up with her manager creative services. Casper Drake M.D. DR: DAT JOB#: [id number] CC:
[2016-12-13 20:00] VITALS: BP 110/80
--- NOTE | 2016-12-13 23:09 | Consultation ---
Consult Note Consult Note NEUROLOGY CONSULTATION: Full note dictated #[id number] 51 y/o, RH, CF with PH of HTN, DM, DL, prolonged QT, V-tach, AICD. On 12/10/16 she felt generally unwell. On 12/11/16 she felt a little better but still unwell. On 12/12/16 she started to feel vertiginous with the room spinning and her unable to walk steadily. She then had severe nausea and multiple bouts of vomiting. She took her BP and it was in the 80s systolic. She thus came to the hospital. Since she has been here she has improved but still has brief vertiginous events when she lies on her left side. ON EXAM: Few beats of nystagmus when she looked to the left - fatigable. IMPRESSION: Labyrinthine vertigo - most probably viral - now improving. REC: Reassure. Valium 2 mg po q HS for few nights. Increase activity. Arlene Broussard M.D., M.S.P.H. ARLENE BROUSSARD Dec 13, 2016 23:09
[2016-12-14 00:20] VITALS: BP 105/67
--- NOTE | 2016-12-14 02:37 | Consultation ---
NEUROLOGY CONSULTATION DATE OF CONSULTATION: 12/13/2016 REQUESTING PHYSICIANS: Nallely Sullivan M.D. HISTORY: Ms. Opal Castano is a 51-year-old, right-handed, lady, who does have a past history of hypertension, diabetes mellitus, dyslipidemia, prolonged QT interval, ventricular tachycardia, and an automatic implanted cardioverter-defibrillator placement. She was functioning relatively well on 12/10/2016, when she felt generally unwell. On 12/11/2016, she felt a little better, but still unwell. On 12/12/2016, she started to feel vertiginous with the room spinning and unable to walk in a steady manner. She also had severe nausea and vomiting with multiple bouts of vomiting. She felt quite lightheaded and unwell and took her blood pressure and it was in the 80s systolic, where as it usually runs in the 150s systolic. She thus came into the [facility] Emergency Room. She has been admitted since then and has been rehydrated and feels significantly better today. She, however, still has episodes of spinning sensations, lasting for few seconds, when she lies on the left side, which improve significantly if she lies on her right side. She denies any fevers, chills, change in hearing, weakness in one side or the other, numbness in one side or the other, or any other neurological symptoms. She also denies any similar symptoms in the past. PAST MEDICAL HISTORY: Significant for high blood pressure, diabetes mellitus, dyslipidemia, prolong QT interval, ventricular tachycardia for which she has an automatic implanted cardioverter defibrillator placement. FAMILY HISTORY: Significant for high blood pressure and diabetes mellitus in other family members. PERSONAL HISTORY: Home: She lives with roommates. 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 Habits: She used to smoke in the past, but stopped smoking numerous years ago. She denies the use of alcohol or illicit drugs. PRESENT MEDICATIONS: Include pravastatin, flecainide, aspirin, Toprol, Neurontin, Percocet, NovoLog insulin, Tylenol p.r.n., morphine p.r.n., MiraLAX p.r.n., Zofran p.r.n., Ambien p.r.n., lorazepam p.r.n., and Mylanta p.r.n. PHYSICAL EXAMINATION: GENERAL: She is a well-developed, obese lady, lying in bed with the head turned to the right side. VITAL SIGNS: Pulse 70 per minute, blood pressure 110/80 mmHg, respirations 18 per minute, and temperature 98.2 degrees Fahrenheit. HEAD: Normocephalic and atraumatic. NECK: No neck rigidity was observed. EENT EXAMINATION: Benign. NEUROLOGICAL EXAMINATION: MENTAL STATUS EXAMINATION: She was alert and awake. She was oriented to person, place, and time. She was able to recall 3/3 words immediately after 1 and 3 minutes on the second trial. She was able to remember presidents, Trump through Obama. Her mathematical skills were fairly good. Her visuospatial function was preserved. SPEECH: She had no dysarthria language. LANGUAGE: She had no aphasia. CRANIAL NERVE EXAMINATION: II: The visual estes were intact to confrontation testing. III, IV & : The external ocular movements were full and the pupils 3 mm in diameter equal round regular and reactive to light. V: She had normal facial sensations and the temporales, masseters, and pterygoids functioned normally. VII: She had normal facial expressions and no facial asymmetry. VIII: Hearing is normal to finger rubbing. She had no nystagmus, when she looks to the right side. However, when she looked to the left side, she had a few beats of nystagmus, which was fatigable. When the process was repeated, no nystagmus could be reproduced. IX: The palate moved symmetrically on phonation. X: She had no hoarseness of voice. XI: The sternocleidomastoids and trapezii functioned normally. XII: The tongue was in the midline without any fasciculations or atrophy. MOTOR SYSTEM: The tone was increased in all four extremities. Examination of muscle mass revealed no focal wasting. Examination of power revealed grade 5/5 power in all muscles groups tested. SENSORY EXAMINATION: She had intact sensations to pinprick, light touch, and graphesthesia. COORDINATION: She performed well on [id number] and ekln-xc-tpow testing. REFLEXES: 2++ and bilaterally symmetrical at the biceps, triceps, brachioradialis, and knees. 2+ at both ankles. The plantar responses were flexor bilaterally. COORDINATION: She performed well on [id number]-yd-mhun and cgdk-vo-amjp testing. STANCE: She had a normal stance. GAIT: She had a normal gait. DIAGNOSTIC IMPRESSION: 1. Ms. Opal Castano is a 51-year-old, right-handed, lady, who does have a past history of hypertension, diabetes mellitus, dyslipidemia, prolonged QT interval, ventricular tachycardia, and automatic implanted cardioverter-defibrillator placement for episodes of ventricular tachycardia, who has felt unwell for the last few days and yesterday had multiple episodes of nausea and vomiting associated with significant vertigo. Today, the vertigo is much better, but seems to be a little worse, when she keeps her head to the left side and gets better when she looks to the right side. 2. On neurological examination, at this time, she does have mild problems with memory, and in addition, a few beats of nystagmus associated with a brief episode of vertigo when she looked to the left side. The rest of the neurological examination is essentially benign. 3. Laboratory data obtained thus far revealed a relatively normal CBC. The chemistry panel on admission revealed a BUN elevated 25 with a creatinine elevated to 1.4, and a blood glucose elevated to 299. TSH is normal. The urine toxicology screen was positive for amphetamines. The urine analysis was relatively benign. 4. The patient's history and neurological examination are most compatible with labyrinthine vertigo. The most likely etiology for this vertigo would be a viral syndrome, which is now improving. RECOMMENDATIONS: 1. Agree with management thus far. 2. The patient was reassured that she most probably has labyrinthine vertigo of a viral nature, which should improve on its own with the passage of time. 3. She will be started on Valium 2 mg by mouth at bedtime for the next few nights to help her with vertiginous symptoms. 4. She was told to increase her activity as tolerated over the next day or so. Thank you for entrusting me with the care of Ms Castano. I shall follow her with you. Jeff Broussard M.D., M.S.P.H. DR: YULISSA JOB#: [id number] [facility]ITALAlex
[2016-12-14 04:30] VITALS: BP 115/90
[2016-12-14] MEDS: NovoLOG Insulin Flexpen SUBQ SCH ×4 (06:26→20:41)
[2016-12-14 07:32] LABS: BASOPHILS % (AUTO) 1.3 % (0.0-2.0); EOSINOPHILS % (AUTO) 1.7 % (0.0-3.0); LYMPHOCYTES % (AUTO) 42.5 % (20.0-45.0); MEAN CORPUSCULAR HEMOGLOBIN 33.3 PG (27.0-31.0); MEAN CORPUSCULAR HGB CONC 33.9 G/DL (32.0-36.0); MEAN CORPUSCULAR VOLUME 98 FL (80-99); MONOCYTES % (AUTO) 9.1 % (1.0-10.0); NEUTROPHILS % (AUTO) 45.4 % (45.0-75.0); PLATELET COUNT 280 K/UL (150-450); RED BLOOD COUNT 3.81 M/UL (4.20-5.40); RED CELL DISTRIBUTION WIDTH 11.2 % (11.6-14.8); WHITE BLOOD COUNT 7.7 K/UL (4.8-10.8)
[2016-12-14 07:38] LABS: ALBUMIN/GLOBULIN RATIO 1.9 (1.0-2.7); CALCIUM 9.8 mg/dL (8.6-10.2); CREATININE 1.2 mg/dL (0.5-0.9); GLOMERULAR FILTRATION RATE 47.8 mL/min (>60); POTASSIUM 4.8 mEQ/L (3.4-4.9); TOTAL PROTEIN 6.5 g/dL (6.6-8.7)
[2016-12-14 08:00] VITALS: BP 110/80
[2016-12-14] MEDS: Aspirin Baby 81mg ORAL SCH (08:49)
[2016-12-14 12:00] VITALS: BP 107/77
--- NOTE | 2016-12-14 13:40 | Pulmonology Progress Note ---
Assessment/Plan Problems: (1) Hypotension (2) AICD (automatic cardioverter/defibrillator) present (3) ACS (acute coronary syndrome) Assessment/Plan bp slightly better, but still borderline low but still episodes of dizziness keep one more day in teli Subjective ROS Limited/Unobtainable: No Interval Events: still episodes of dizziness Allergies: Coded Allergies: SUMATRIPTAN (Verified Allergy, Unknown, 04/18/16) Uncoded Allergies: ARTIFICIAL SWEETNERS (Allergy, Unknown, 04/18/16) Objective Last 24 Hour Vital Signs Date Time Temp Pulse Resp B/P Pulse Ox O2 Delivery O2 Flow Rate FiO2 12/14/16 12:00 98.1 70 17 107/77 95 83 12/14/16 09:12 70 70 71 12/14/16 08:54 70 110/80 12/14/16 08:00 97.0 70 17 110/80 97 Room Air 70 12/14/16 04:30 97.0 70 20 115/90 96 Room Air 12/14/16 04:00 70 12/14/16 01:00 68 69 70 12/14/16 00:20 98.0 70 20 105/67 98 Room Air 12/14/16 00:00 70 12/13/16 20:00 98.2 70 18 110/80 97 Room Air 12/13/16 20:00 105 12/13/16 17:14 70 114/81 12/13/16 16:00 70 69 91 12/13/16 16:00 70 12/13/16 16:00 97.7 70 18 114/81 96 Room Air Intake and Output 12/13/16 12/14/16 19:00 07:00 Intake Total 780 ml 350 ml Output Total 3 ml Balance 777 ml 350 ml Intake Oral 780 ml 350 ml Output Urine Total 3 ml # Voids 1 3 General Appearance: WD/WN HEENT: normocephalic Respiratory/Chest: chest wall non-tender, lungs clear Breasts: no masses Cardiovascular: normal peripheral pulses Abdomen: normal bowel sounds, no organomegaly Skin: no rash 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 grossly normal Microbiology Date/Time Source Procedure Growth Status 12/12/16 18:30 Blood Blood Culture - Preliminary NO GROWTH AFTER 24 HOURS Resulted 12/12/16 18:30 Blood Blood Culture - Preliminary NO GROWTH AFTER 24 HOURS Resulted Laboratory Tests 12/14/16 06:30: White Blood Count 7.7, Red Blood Count 3.81L, Hemoglobin 12.7, Hematocrit 37.5, Mean Corpuscular Volume 98, Mean Corpuscular Hemoglobin 33.3H, Mean Corpuscular Hemoglobin Concent 33.9, Red Cell Distribution Width 11.2L, Platelet Count 280, Mean Platelet Volume 6.0L, Neutrophils (%) (Auto) 45.4, Lymphocytes (%) (Auto) 42.5, Monocytes (%) (Auto) 9.1, Eosinophils (%) (Auto) 1.7, Basophils (%) (Auto ) 1.3, Sodium Level 139, Potassium Level 4.8, Chloride Level 98, Carbon Dioxide Level 30, Anion Gap 11, Blood Urea Nitrogen 21, Creatinine 1.2H, Estimat Glomerular Filtration Rate 47.8, Glucose Level 189H, Calcium Level 9.8, Total Bilirubin 0.2, Aspartate Amino Transf (AST/SGOT) 12, Alanine Aminotransferase ( ALT/SGPT) 14, Alkaline Phosphatase 62, Total Protein 6.5L, Albumin 4.3, Globulin 2.2, Albumin/Globulin Ratio 1.9 Current Medications Medications (Trade) Dose Ordered Sig/Shawn Route PRN Reason Start Time Stop Time Status Last Admin Dose Admin Acetaminophen (Tylenol) 650 mg Q4H PRN ORAL fever 12/12/16 21:45 01/11/17 21:44 Al Hydroxide/Mg Hydroxide (Mylanta II) 30 ml Q6H PRN ORAL dyspepsia 12/12/16 21:45 01/11/17 21:44 Aspirin (ASA) 81 mg DAILY ORAL 12/13/16 16:00 01/12/17 15:59 12/14/16 08:49 Dextrose (Dextrose 50%) STAT PRN IV Hypoglycemia 12/12/16 21:45 01/11/17 21:44 Diazepam (Valium) 2 mg QHS ORAL 12/13/16 23:15 12/20/16 23:14 12/13/16 23:39 Flecainide Acetate (Tambocor) 150 mg BID ORAL 12/13/16 18:00 01/12/17 17:59 12/14/16 08:50 Gabapentin (Neurontin) 300 mg THREE TIMES A DAY ORAL 12/13/16 09:00 01/12/17 08:59 12/14/16 12:54 Insulin Aspart (NovoLOG) BEFORE MEALS AND HS SUBQ 12/13/16 06:30 01/12/17 06:29 12/14/16 11:48 Lorazepam (Ativan 2mg/ml 1ml) 0.5 mg Q4H PRN IV For Anxiety 12/12/16 21:45 12/19/16 21:44 Metoprolol Succinate (Toprol XL) 50 mg DAILY ORAL 12/13/16 16:00 01/12/17 15:59 12/14/16 08:54 Morphine Sulfate (Morphine Sulfate) 1 mg EVERY 4 HOURS PRN IVP For Pain 12/12/16 21:45 12/19/16 21:44 12/13/16 18:16 Ondansetron HCl (Zofran) 4 mg Q6H PRN IVP Nausea & Vomiting 12/12/16 21:45 01/11/17 21:44 Oxycodone/ Acetaminophen (Percocet 10/325) 1 tab Q4H PRN ORAL Breakthrough Pain 12/13/16 08:30 12/20/16 08:29 12/14/16 12:55 Polyethylene Glycol (Miralax) 17 gm HSPRN PRN ORAL Constipation 12/12/16 21:45 01/11/17 21:44 Pravastatin Sodium (Pravachol) 20 mg BEDTIME ORAL 12/13/16 21:00 01/12/17 20:59 12/13/16 20:57 Zolpidem Tartrate (Ambien) 5 mg HSPRN PRN ORAL Insomnia 12/12/16 21:45 01/11/17 21:44 JIM GERARDO Dec 14, 2016 13:40
[2016-12-14 16:00] VITALS: BP 99/67
[2016-12-14] MEDS: LORazepam Inj 2mg/ml 1ml IV PRN (16:41)
--- NOTE | 2016-12-14 18:21 | Neurology Progress Note ---
Interim History Interim History Interim History Ms. Castano feels better. The vertigo is much better. She however is bothered by myoclonic jerks. She denies any new neurologic symptoms. She has been more mobile today. Review of Systems Neuro Review of Systems Benign. Objective Physical Exam Last Vital Signs Date Time Temp Pulse Resp B/P Pulse Ox O2 Delivery O2 Flow Rate FiO2 12/14/16 16:00 97.5 70 18 99/67 96 Room Air 12/12/16 22:30 2.0 Laboratory Tests Test 12/14/16 06:30 White Blood Count 7.7 K/UL (4.8-10.8) Red Blood Count 3.81 M/UL (4.20-5.40) L Hemoglobin 12.7 G/DL (12.0-16.0) Hematocrit 37.5 % (37.0-47.0) Mean Corpuscular Volume 98 FL (80-99) Mean Corpuscular Hemoglobin 33.3 PG (27.0-31.0) H Mean Corpuscular Hemoglobin Concent 33.9 G/DL (32.0-36.0) Red Cell Distribution Width 11.2 % (11.6-14.8) L Platelet Count 280 K/UL (150-450) Mean Platelet Volume 6.0 FL (6.5-10.1) L Neutrophils (%) (Auto) 45.4 % (45.0-75.0) Lymphocytes (%) (Auto) 42.5 % (20.0-45.0) Monocytes (%) (Auto) 9.1 % (1.0-10.0) Eosinophils (%) (Auto) 1.7 % (0.0-3.0) Basophils (%) (Auto) 1.3 % (0.0-2.0) Sodium Level 139 mEQ/L (135-145) Potassium Level 4.8 mEQ/L (3.4-4.9) Chloride Level 98 mEQ/L (98-107) Carbon Dioxide Level 30 mEQ/L (20-30) Anion Gap 11 (5-15) Blood Urea Nitrogen 21 mg/dL (7-23) Creatinine 1.2 mg/dL (0.5-0.9) H Estimat Glomerular Filtration Rate 47.8 mL/min (>60) Glucose Level 189 mg/dL (74-106) H Calcium Level 9.8 mg/dL (8.6-10.2) Total Bilirubin 0.2 mg/dL (0.0-1.2) Aspartate Amino Transf (AST/SGOT) 12 U/L (5-40) Alanine Aminotransferase (ALT/SGPT) 14 U/L (3-33) Alkaline Phosphatase 62 U/L (35-104) Total Protein 6.5 g/dL (6.6-8.7) L Albumin 4.3 g/dL (3.5-5.2) Globulin 2.2 g/dL Albumin/Globulin Ratio 1.9 (1.0-2.7) Neurologic Exam Objective PHYSICAL EXAMINATION: GENERAL: She is a well-developed, obese lady, lying in bed with the head turned to the right side. HEAD: Normocephalic and atraumatic. NECK: No neck rigidity was observed. EENT EXAMINATION: Benign. NEUROLOGICAL EXAMINATION: MENTAL STATUS EXAMINATION: She was alert and awake. She was oriented to person, place, and time. She was able to recall 3/3 words immediately after 1 and 3 minutes on the second trial. She was able to remember presidents, Trump through Obama. Her mathematical skills were fairly good. Her visuospatial function was preserved. SPEECH: She had no dysarthria language. LANGUAGE: She had no aphasia. CRANIAL NERVE EXAMINATION: II: The visual estes were intact to confrontation testing. III, IV & : The external ocular movements were full and the pupils 3 mm in diameter equal round regular and reactive to light. V: She had normal facial sensations and the temporales, masseters, and pterygoids functioned normally. VII: She had normal facial expressions and no facial asymmetry. VIII: Her hearing was normal to finger rubbing. She had no nystagmus. IX: The palate moved symmetrically on phonation. X: She had no hoarseness of voice. XI: The sternocleidomastoids and trapezii functioned normally. XII: The tongue was in the midline without any fasciculations or atrophy. MOTOR SYSTEM: The tone was increased in all four extremities. Examination of muscle mass revealed no focal wasting. Examination of power revealed grade 5/5 power in all muscles groups tested. SENSORY EXAMINATION: She had intact sensations to pinprick, light touch, and graphesthesia. COORDINATION: She performed well on [id number]-lxzg and jdwl-uo-ruft testing. REFLEXES: 2++ and bilaterally symmetrical at the biceps, triceps, brachioradialis, and knees. 2+ at both ankles. The plantar responses were flexor bilaterally. COORDINATION: She performed well on [id number]-pm-abeh and eczx-ex-wthc testing. STANCE: She had a normal stance. GAIT: She had a normal gait. Impression/Recommendations Diagnostic Impression 1. Ms. Opal Castano is a 51-year-old, right-handed, lady, who does have a past history of hypertension, diabetes mellitus, dyslipidemia, prolonged QT interval, ventricular tachycardia, and automatic implanted cardioverter-defibrillator placement for episodes of ventricular tachycardia, who has felt unwell for the last few days and on 12/12/16 had multiple episodes of nausea and vomiting associated with significant vertigo. On 12/13/16 the vertigo was better. 2. She feels much better today with marked improvement in the vertigo but she is bothered by myoclonic jerks. 3. On neurological examination, at this time, she does have mild problems with memory. The rest of the neurological examination is essentially benign. 4. Laboratory data on my initial evaluation revealed a relatively normal CBC. The chemistry panel on admission revealed a BUN elevated 25 with a creatinine elevated to 1.4, and a blood glucose elevated to 299. The TSH was normal. The urine toxicology screen was positive for amphetamines. The urine analysis was relatively benign. 5. The patient's history and neurological examination are most compatible with labyrinthine vertigo. The most likely etiology for this vertigo would be a viral syndrome, which is now improving. Recommendations 1. Continue present management. 2. Continue Valium 2 mg by mouth at bedtime for the next few nights to help her with vertiginous symptoms. 3. Increase activity as tolerated. Jeff Broussard M.D., M.S.P.H. JEFF BROUSSARD Dec 14, 2016 18:21
[2016-12-14 20:00] VITALS: BP 94/69
--- NOTE | 2016-12-14 20:48 | Cardiology Progress Note ---
Assessment/Plan Assessment/Plan 1. Symptomatic acute vertigo. 2. Nausea and vomiting related to above. 3. Hypotension probably related to a combination of medications as well as volume depletion from above. 4. Diabetes mellitus. 5. History of hypertension. 6. Renal insufficiency. 7. Long QT syndrome, status post intracardiac defibrillator need ivf stacie start toneitwith a bolus . 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 a paced v sensed d/w pt Subjective Cardiovascular: Reports: lightheadedness, Denies: chest pain Respiratory: Denies: shortness of breath Gastrointestinal/Abdominal: Denies: abdominal pain Genitourinary: Denies: burning Subjective vertigo better but lithgtheaded when she stadn up Objective Last 24 Hour Vital Signs Date Time Temp Pulse Resp B/P Pulse Ox O2 Delivery O2 Flow Rate FiO2 12/14/16 16:00 97.5 70 18 99/67 96 Room Air 12/14/16 16:00 70 12/14/16 12:00 70 12/14/16 12:00 98.1 70 17 107/77 95 83 12/14/16 09:12 70 70 71 12/14/16 08:54 70 110/80 12/14/16 08:00 70 12/14/16 08:00 97.0 70 17 110/80 97 Room Air 70 12/14/16 04:30 97.0 70 20 115/90 96 Room Air 12/14/16 04:00 70 12/14/16 01:00 68 69 70 12/14/16 00:20 98.0 70 20 105/67 98 Room Air 12/14/16 00:00 70 General Appearance: no apparent distress Neck: supple Cardiovascular: normal rate, regular rhythm Respiratory/Chest: lungs clear, normal breath sounds Abdomen: normal bowel sounds, non tender Extremities: no swelling Intake and Output 12/13/16 12/14/16 19:00 07:00 Intake Total 780 ml 350 ml Output Total 3 ml Balance 777 ml 350 ml Intake Oral 780 ml 350 ml Output Urine Total 3 ml # Voids 1 3 Laboratory Tests Test 12/14/16 06:30 White Blood Count 7.7 K/UL (4.8-10.8) Red Blood Count 3.81 M/UL (4.20-5.40) L Hemoglobin 12.7 G/DL (12.0-16.0) Hematocrit 37.5 % (37.0-47.0) Mean Corpuscular Volume 98 FL (80-99) Mean Corpuscular Hemoglobin 33.3 PG (27.0-31.0) H Mean Corpuscular Hemoglobin Concent 33.9 G/DL (32.0-36.0) Red Cell Distribution Width 11.2 % (11.6-14.8) L Platelet Count 280 K/UL (150-450) Mean Platelet Volume 6.0 FL (6.5-10.1) L Neutrophils (%) (Auto) 45.4 % (45.0-75.0) Lymphocytes (%) (Auto) 42.5 % (20.0-45.0) Monocytes (%) (Auto) 9.1 % (1.0-10.0) Eosinophils (%) (Auto) 1.7 % (0.0-3.0) Basophils (%) (Auto) 1.3 % (0.0-2.0) Sodium Level 139 mEQ/L (135-145) Potassium Level 4.8 mEQ/L (3.4-4.9) Chloride Level 98 mEQ/L (98-107) Carbon Dioxide Level 30 mEQ/L (20-30) Anion Gap 11 (5-15) Blood Urea Nitrogen 21 mg/dL (7-23) Creatinine 1.2 mg/dL (0.5-0.9) H Estimat Glomerular Filtration Rate 47.8 mL/min (>60) Glucose Level 189 mg/dL (74-106) H Calcium Level 9.8 mg/dL (8.6-10.2) Total Bilirubin 0.2 mg/dL (0.0-1.2) Aspartate Amino Transf (AST/SGOT) 12 U/L (5-40) Alanine Aminotransferase (ALT/SGPT) 14 U/L (3-33) Alkaline Phosphatase 62 U/L (35-104) Total Protein 6.5 g/dL (6.6-8.7) L Albumin 4.3 g/dL (3.5-5.2) Globulin 2.2 g/dL Albumin/Globulin Ratio 1.9 (1.0-2.7) Microbiology Date/Time Source Procedure Growth Status 12/12/16 18:30 Blood Blood Culture - Preliminary NO GROWTH AFTER 24 HOURS Resulted 12/12/16 18:30 Blood Blood Culture - Preliminary NO GROWTH AFTER 24 HOURS Resulted KUMAR CARTER Dec 14, 2016 20:48
[2016-12-14] MEDS ORDERED: NS 250 ML IVPB ONE (21:00)
[2016-12-15 00:22] VITALS: BP 103/72
[2016-12-15 04:00] VITALS: BP 107/90
[2016-12-15] MEDS: NovoLOG Insulin Flexpen SUBQ SCH ×4 (06:34→22:02)
[2016-12-15 08:00] VITALS: BP 111/71
[2016-12-15] MEDS: Aspirin Baby 81mg ORAL SCH (08:20)
[2016-12-15] MEDS: LORazepam Inj 2mg/ml 1ml IV PRN ×2 (09:51→17:00)
[2016-12-15 10:20] LABS: CALCIUM 9.4 mg/dL (8.6-10.2); CREATININE 1.2 mg/dL (0.5-0.9); GLOMERULAR FILTRATION RATE 47.8 mL/min (>60); POTASSIUM 4.7 mEQ/L (3.4-4.9)
[2016-12-15 12:00] VITALS: BP 110/63
--- NOTE | 2016-12-15 12:13 | Diagnostic Imaging Report ---
APPROVED REPORT CPT Code: 09410 Present Symptoms Comments: Back pain BILATERAL: Imaging reveals a patent deep venous system bilaterally. There is no evidence of thrombus within the femoral, popliteal or tibial segments. The greater saphenous veins are also within normal limits. Doppler indicates normal spontaneous flow within these segments.
--- NOTE | 2016-12-15 15:07 | Pulmonology Progress Note ---
Assessment/Plan Problems: (1) Hypotension (2) AICD (automatic cardioverter/defibrillator) present (3) ACS (acute coronary syndrome) Assessment/Plan bp slightly better, but still borderline low but still episodes of dizziness getting IV fluids started to walk on the floor. dc home in am Subjective ROS Limited/Unobtainable: No Constitutional: Reports: no symptoms HEENT: Repors: no symptoms Respiratory: Reports: no symptoms Allergies: Coded Allergies: SUMATRIPTAN (Verified Allergy, Unknown, 04/18/16) Uncoded Allergies: ARTIFICIAL SWEETNERS (Allergy, Unknown, 04/18/16) Objective Last 24 Hour Vital Signs Date Time Temp Pulse Resp B/P Pulse Ox O2 Delivery O2 Flow Rate FiO2 12/15/16 12:00 97.2 70 17 110/63 96 Room Air 73 12/15/16 12:00 70 12/15/16 09:07 80 70 70 12/15/16 08:24 64 110/60 12/15/16 08:00 96.9 70 17 111/71 98 Room Air 71 12/15/16 08:00 70 12/15/16 04:00 98.1 73 19 107/90 97 Room Air 12/15/16 04:00 70 12/15/16 00:24 74 68 70 12/15/16 00:22 97.7 71 18 103/72 95 12/15/16 00:00 60 12/14/16 20:00 70 12/14/16 20:00 97.2 66 18 94/69 96 Room Air 12/14/16 17:00 66 70 68 12/14/16 16:00 97.5 70 18 99/67 96 Room Air 12/14/16 16:00 70 Intake and Output 12/14/16 12/15/16 19:00 07:00 Intake Total 560 ml 1633 ml Balance 560 ml 1633 ml Intake Oral 560 ml 480 ml IV Total 1153 ml # Voids 3 6 General Appearance: WD/WN HEENT: normocephalic, atraumatic Respiratory/Chest: chest wall non-tender, lungs clear Cardiovascular: normal peripheral pulses, normal rate Genitourinary: normal external genitalia Skin: no rash Neurologic/Psychiatric: crate opener II-XII grossly normal Microbiology Date/Time Source Procedure Growth Status 12/12/16 18:30 Blood Blood Culture - Preliminary NO GROWTH AFTER 48 HOURS Resulted 12/12/16 18:30 Blood Blood Culture - Preliminary NO GROWTH AFTER 48 HOURS Resulted Laboratory Tests 12/15/16 09:15: Sodium Level 138, Potassium Level 4.7, Chloride Level 97L, Carbon Dioxide Level 27, Anion Gap 14, Blood Urea Nitrogen 17, Creatinine 1.2H, Estimat Glomerular Filtration Rate 47.8, Glucose Level 215H, Calcium Level 9.4 Current Medications Medications (Trade) Dose Ordered Sig/Shawn Route PRN Reason Start Time Stop Time Status Last Admin Dose Admin Acetaminophen (Tylenol) 650 mg Q4H PRN ORAL fever 12/12/16 21:45 01/11/17 21:44 Al Hydroxide/Mg Hydroxide (Mylanta II) 30 ml Q6H PRN ORAL dyspepsia 12/12/16 21:45 01/11/17 21:44 Aspirin (ASA) 81 mg DAILY ORAL 12/13/16 16:00 01/12/17 15:59 12/15/16 08:20 Dextrose (Dextrose 50%) STAT PRN IV Hypoglycemia 12/12/16 21:45 01/11/17 21:44 Diazepam 2 mg 2 mg QHS ORAL 12/13/16 23:15 12/20/16 23:14 12/14/16 20:39 Flecainide Acetate (Tambocor) 150 mg BID ORAL 12/13/16 18:00 01/12/17 17:59 12/15/16 08:21 Gabapentin (Neurontin) 300 mg THREE TIMES A DAY ORAL 12/13/16 09:00 01/12/17 08:59 12/15/16 12:10 Insulin Aspart (NovoLOG) BEFORE MEALS AND HS SUBQ 12/13/16 06:30 01/12/17 06:29 12/15/16 12:11 Lorazepam (Ativan 2mg/ml 1ml) 0.5 mg Q4H PRN IV For Anxiety 12/12/16 21:45 12/19/16 21:44 12/15/16 09:51 Metoprolol Succinate (Toprol XL) 50 mg DAILY ORAL 12/13/16 16:00 01/12/17 15:59 12/14/16 08:54 Morphine Sulfate (Morphine Sulfate) 1 mg EVERY 4 HOURS PRN IVP For Pain 12/12/16 21:45 12/19/16 21:44 12/13/16 18:16 Ondansetron HCl (Zofran) 4 mg Q6H PRN IVP Nausea & Vomiting 12/12/16 21:45 01/11/17 21:44 Oxycodone/ Acetaminophen (Percocet 10/325) 1 tab Q4H PRN ORAL Breakthrough Pain 12/13/16 08:30 12/20/16 08:29 12/15/16 13:38 Polyethylene Glycol (Miralax) 17 gm HSPRN PRN ORAL Constipation 12/12/16 21:45 01/11/17 21:44 Pravastatin Sodium (Pravachol) 20 mg BEDTIME ORAL 12/13/16 21:00 01/12/17 20:59 12/14/16 20:39 Sodium Chloride (Sodium Chloride 1000ml bag) 1,000 ml @ 100 mls/hr Q10H IV 12/14/16 21:30 01/13/17 21:29 12/15/16 07:39 Zolpidem Tartrate (Ambien) 5 mg HSPRN PRN ORAL Insomnia 12/12/16 21:45 01/11/17 21:44 JIM GERARDO Dec 15, 2016 15:07
[2016-12-15 16:00] VITALS: BP 105/72
[2016-12-15 20:00] VITALS: BP 107/73
--- NOTE | 2016-12-15 21:03 | Neurology Progress Note ---
Interim History Interim History Interim History Ms. Castano feels better. The vertigo is much better. She however is bothered by myoclonic jerks. Of note is that her Zoloft 200 mg was discontinues since she was admitted. She denies any new neurologic symptoms. She has been more mobile today. Review of Systems Neuro Review of Systems Benign. Objective Physical Exam Last Vital Signs Date Time Temp Pulse Resp B/P Pulse Ox O2 Delivery O2 Flow Rate FiO2 12/15/16 20:00 98.1 69 18 107/73 98 Room Air 12/12/16 22:30 2.0 Laboratory Tests Test 12/15/16 09:15 Sodium Level 138 mEQ/L (135-145) Potassium Level 4.7 mEQ/L (3.4-4.9) Chloride Level 97 mEQ/L (98-107) L Carbon Dioxide Level 27 mEQ/L (20-30) Anion Gap 14 (5-15) Blood Urea Nitrogen 17 mg/dL (7-23) Creatinine 1.2 mg/dL (0.5-0.9) H Estimat Glomerular Filtration Rate 47.8 mL/min (>60) Glucose Level 215 mg/dL (74-106) H Calcium Level 9.4 mg/dL (8.6-10.2) Neurologic Exam Objective PHYSICAL EXAMINATION: GENERAL: She is a well-developed, obese lady, lying in bed, in no acute distress. HEAD: Normocephalic and atraumatic. NECK: No neck rigidity was observed. EENT EXAMINATION: Benign. NEUROLOGICAL EXAMINATION: MENTAL STATUS EXAMINATION: She was alert and awake. She was oriented to person, place, and time. She was able to recall 3/3 words immediately after 1 and 3 minutes on the second trial. She was able to remember presidents, Trump through Obama. Her mathematical skills were fairly good. Her visuospatial function was preserved. SPEECH: She had no dysarthria language. LANGUAGE: She had no aphasia. CRANIAL NERVE EXAMINATION: II: The visual estes were intact to confrontation testing. III, IV & : The external ocular movements were full and the pupils 3 mm in diameter equal round regular and reactive to light. V: She had normal facial sensations and the temporales, masseters, and pterygoids functioned normally. VII: She had normal facial expressions and no facial asymmetry. VIII: Her hearing was normal to finger rubbing. She had no nystagmus. IX: The palate moved symmetrically on phonation. X: She had no hoarseness of voice. XI: The sternocleidomastoids and trapezii functioned normally. XII: The tongue was in the midline without any fasciculations or atrophy. MOTOR SYSTEM: The tone was increased in all four extremities. Examination of muscle mass revealed no focal wasting. Examination of power revealed grade 5/5 power in all muscles groups tested. SENSORY EXAMINATION: She had intact sensations to pinprick, light touch, and graphesthesia. COORDINATION: She performed well on [id number] and [id number] testing. REFLEXES: 2++ and bilaterally symmetrical at the biceps, triceps, brachioradialis, and knees. 2+ at both ankles. The plantar responses were flexor bilaterally. COORDINATION: She performed well on myhmvx-dj-[id number] and ubdb-dw-[id number] testing. STANCE: She had a normal stance. GAIT: She had a normal gait. Impression/Recommendations Diagnostic Impression 1. Ms. Opal Castano is a 51-year-old, right-handed, lady, who does have a past history of hypertension, diabetes mellitus, dyslipidemia, prolonged QT interval, ventricular tachycardia, and automatic implanted cardioverter-defibrillator placement for episodes of ventricular tachycardia, who has felt unwell for the last few days and on 12/12/16 had multiple episodes of nausea and vomiting associated with significant vertigo. On 12/13/16 the vertigo was better. 2. She feels much better today with marked improvement in the vertigo but she is still bothered by myoclonic jerks. 3. On neurological examination, at this time, she does have mild problems with memory. The rest of the neurological examination is essentially benign. 4. Laboratory data on my initial evaluation revealed a relatively normal CBC. The chemistry panel on admission revealed a BUN elevated 25 with a creatinine elevated to 1.4, and a blood glucose elevated to 299. The TSH was normal. The urine toxicology screen was positive for amphetamines. The urine analysis was relatively benign. 5. The patient's history and neurological examination are most compatible with labyrinthine vertigo. The most likely etiology for this vertigo would be a viral syndrome, which is now improving. 6. She is bothered by myoclonus which may be related to Zoloft withdrawal. Recommendations 1. Continue present management. 2. Continue Valium 2 mg by mouth at bedtime for the next few nights to help her with vertiginous symptoms. 3. Increase activity as tolerated. Jeff Broussard M.D., M.S.P.H. JEFF BROUSSARD Dec 15, 2016 21:03
--- NOTE | 2016-12-15 21:20 | Cardiology Progress Note ---
Assessment/Plan Assessment/Plan 1. Symptomatic acute vertigo. 2. Nausea and vomiting related to above. 3. Hypotension probably related to a combination of medications as well as volume depletion from above. 4. Diabetes mellitus. 5. History of hypertension. 6. Renal insufficiency. 7. Long QT syndrome, status post intracardiac defibrillator bp is better but still not high enoug not need meds . neuro noted tele reviewed personally a paced v sensed d/w pt Subjective Cardiovascular: Reports: lightheadedness, Denies: chest pain Respiratory: Denies: shortness of breath Subjective light headned when first sit up but vertigenous when start walkign not surehow urine was postive for amphetamines Objective Last 24 Hour Vital Signs Date Time Temp Pulse Resp B/P Pulse Ox O2 Delivery O2 Flow Rate FiO2 12/15/16 20:00 98.1 69 18 107/73 98 Room Air 12/15/16 16:00 97.5 71 18 105/72 68 Room Air 12/15/16 16:00 77 12/15/16 16:00 71 68 70 12/15/16 12:00 97.2 70 17 110/63 96 Room Air 73 12/15/16 12:00 70 12/15/16 09:07 80 70 70 12/15/16 08:24 64 110/60 12/15/16 08:00 96.9 70 17 111/71 98 Room Air 71 12/15/16 08:00 70 12/15/16 04:00 98.1 73 19 107/90 97 Room Air 12/15/16 04:00 70 12/15/16 00:24 74 68 70 12/15/16 00:22 97.7 71 18 103/72 95 12/15/16 00:00 60 General Appearance: no apparent distress, alert Neck: supple Cardiovascular: normal rate, regular rhythm Respiratory/Chest: lungs clear, normal breath sounds Abdomen: normal bowel sounds, non tender, soft Extremities: no swelling Intake and Output 12/14/16 12/15/16 19:00 07:00 Intake Total 560 ml 1633 ml Balance 560 ml 1633 ml Intake Oral 560 ml 480 ml IV Total 1153 ml # Voids 3 6 Laboratory Tests Test 12/15/16 09:15 Sodium Level 138 mEQ/L (135-145) Potassium Level 4.7 mEQ/L (3.4-4.9) Chloride Level 97 mEQ/L (98-107) L Carbon Dioxide Level 27 mEQ/L (20-30) Anion Gap 14 (5-15) Blood Urea Nitrogen 17 mg/dL (7-23) Creatinine 1.2 mg/dL (0.5-0.9) H Estimat Glomerular Filtration Rate 47.8 mL/min (>60) Glucose Level 215 mg/dL (74-106) H Calcium Level 9.4 mg/dL (8.6-10.2) KUMAR CARTER Dec 15, 2016 21:20
[2016-12-15] MEDS: Morphine Sulfate 2mg/ml Inj IVP PRN (21:52)
[2016-12-16] VITALS: BP 97/69
[2016-12-16 04:00] VITALS: BP 100/64
[2016-12-16] MEDS: NovoLOG Insulin Flexpen SUBQ SCH (06:29)
[2016-12-16 08:01] VITALS: BP 113/78
[2016-12-16 08:35] VITALS: BP 113/78
[2016-12-16] MEDS: Aspirin Baby 81mg ORAL SCH (08:35)
[2016-12-16] MEDS ORDERED: NS 275ml ONE (10:59)
--- NOTE | 2016-12-16 15:09 | Pulmonology Progress Note ---
Assessment/Plan Problems: (1) Hypotension (2) AICD (automatic cardioverter/defibrillator) present (3) ACS (acute coronary syndrome) Assessment/Plan bp slightly better, but still borderline low no more episodes of dizziness getting IV fluids started to walk on the floor. dc home today Subjective ROS Limited/Unobtainable: No Interval Events: improving, watns to go home Allergies: Coded Allergies: SUMATRIPTAN (Verified Allergy, Unknown, 04/18/16) Uncoded Allergies: ARTIFICIAL SWEETNERS (Allergy, Unknown, 04/18/16) Objective Last 24 Hour Vital Signs Date Time Temp Pulse Resp B/P Pulse Ox O2 Delivery O2 Flow Rate FiO2 12/16/16 09:00 70 12/16/16 08:55 70 12/16/16 08:50 70 12/16/16 08:35 70 113/78 12/16/16 08:01 96.8 70 18 113/78 97 Room Air 12/16/16 08:00 70 12/16/16 04:00 81 12/16/16 04:00 97.0 69 18 100/64 96 Room Air 12/16/16 00:00 96.4 70 18 97/69 96 Room Air 12/16/16 00:00 70 12/16/16 00:00 70 69 73 12/15/16 20:00 98.1 69 18 107/73 98 Room Air 12/15/16 20:00 70 12/15/16 16:00 97.5 71 18 105/72 68 Room Air 12/15/16 16:00 77 12/15/16 16:00 71 68 70 Intake and Output 12/15/16 12/16/16 19:00 07:00 Intake Total 1718.33 ml 1320 ml Balance 1718.33 ml 1320 ml Intake Oral 680 ml 120 ml IV Total 1038.33 ml 1200 ml # Voids 5 5 # Bowel Movements 1 General Appearance: WD/WN HEENT: normocephalic, atraumatic Respiratory/Chest: chest wall non-tender, lungs clear Cardiovascular: normal peripheral pulses, regular rhythm, no JVD Abdomen: soft, non tender JIM GERARDO Dec 16, 2016 15:09
--- NOTE | 2016-12-19 08:43 | Discharge Summary ---
Discharge Summary Hospital Course Date of Admission Dec 12, 2016 at 18:17 Date of Discharge Dec 16, 2016 at 11:00 Admitting Diagnosis hypotension HPI Opal Castano is a 51 year old female who was admitted on Dec 12, 2016 at 18:17 for Hypotension Hospital Course dc summary # [id number] Discharge Medications Continued Medications: Aspirin* (Aspirin*) 81 Mg Tab.chew 81 MG ORAL DAILY, TAB Estrogens, Conjugated (Premarin) 0.9 Mg Tablet 0.3 MG ORAL DAILY, #30 TAB 0 Refills Famotidine (Famotidine) 20 Mg Tablet 20 MG ORAL DAILY, #30 TAB 0 Refills Ferrous Sulfate, Dried (Iron) 159 Mg Tablet.er 65 MG PO, TAB Flecainide Acetate (Flecainide Acetate*) 100 Mg Tablet 150 MG ORAL BID, TAB 0 Refills Insulin Detemir (Levemir) 100 Unit/1 Ml Vial 30 SUBQ DAILY, VIAL Liraglutide (Victoza 2-German) 0.6 Mg/0.1 Ml Pen.injctr 1.8 MG SUBQ DAILY, EA 0 Refills Medroxyprogesterone Acet* (Provera*) 2.5 Mg Tablet 2.5 MG ORAL DAILY, #10 TAB 0 Refills Metoprolol Succinate* (Metoprolol Succinate*) 50 Mg Tab.er.24h 50 MG ORAL DAILY, TAB Pravastatin Sod* (Pravastatin Sod*) 20 Mg Tablet 20 MG ORAL BEDTIME, TAB Discontinued Medications: Gabapentin* (Gabapentin*) 300 Mg Capsule 300 MG ORAL THREE TIMES A DAY, CAP 0 Refills Discharge Condition Upon Discharge: stable Discharge Disposition Patient was discharged to Home (01) Discharge Diagnoses: Discharge Instructions Discharge Instructions Special Instructions I have been assigned to complete a D/C Summary on this account. I was not involved in the patient management Joan Parks NP ([facility]) Dec 19, 2016 08:43
--- NOTE | 2016-12-19 22:38 | Discharge Summary 2 SIG ---
DATE OF ADMISSION: 12/12/2016 DATE OF DISCHARGE: 12/16/2016 REASON FOR ADMISSION: 51-year-old female came to the emergency room complaining of dizziness and lightheadedness. Blood pressure in the emergency department was 84/62, pulse oximetry on room air was stable, heart rate was stable. The patient with history of automatic implanted cardioverter defibrillator due to the prolonged QT interval. Troponin was negative. She denied chest pain or shortness of breath. She did complain of nausea. She denied fever, chills, any change of medication. The patient with a history of hypertension. She stated that she started to feel lightheaded after she took her blood pressure medications. The patient also has a history of diabetes. At home the patient on multiple regimen of antihypertensive, including beta-esthela, DESTINEE inhibitor, and diuretic, - Aldactone. Patient was symptomatic with standing and walking. Workup in the emergency department revealed no fever, no leukocytosis. Urine toxicology screen was positive for amphetamine. Laboratory workup revealed evidence of mild renal insufficiency with BUN of 25 and creatinine - 1.4. Stable LFTs, stable CK and CK-MB. Troponin negative. No leukocytosis. Stable hemoglobin and hematocrit. Chest x-ray revealed no evidence of acute cardiopulmonary disease. EKG revealed A pacing. In the emergency department, the patient started on the IV fluids. The patient admitted to telemetry for further management. ADMITTING DIAGNOSES: 1. Symptomatic acute vertigo. 2. History of hypertension. 3. Automatic implanted cardioverter defibrillator. 4. Diabetes mellitus. HOSPITAL STAY: The patient admitted to the telemetry floor. Cardiology and Neurology consults were requested. Per flagman review, on telemetry the patient A pacing and V sensing. Blood pressure slowly improved with IV hydration. Renal insufficiency upon admission, with improvement in creatinine to 1.1 with IV fluids, likely prerenal, due to the volume depletion. Neurologist seen and followed the patient closely. Neurologist came to conclusion that patient history and physical mostly compatible with vertigo secondary to labyrinthitis due to the viral infection, which gradually resolving. He recommended Valium at night time while in the hospital for few more days to help with dizziness , as well as increase activity. The patient was on intravenous hydration. Per flagman, hypotension was likely combination of over medication of antihypertensive medications as well as the volume depletion. The patient was discharged on low dose of beta-esthela, no DESTINEE inhibitor, no diuretics. Renal parameters stable. Lipid panel revealed elevated LDL and triglycerides. The patient was counseled on diabetic, low-fat, cardiac diet. The patient to be continued statin as before. Blood sugar was managed with sliding scale of insulin at the hospital, at home continue Victoza as before. TSH was within normal limits. Blood cultures were negative. Urinalysis was negative. Venous duplex of bilateral lower extremities was negative. Dizziness resolved. The patient was able to ambulate safely prior to discharge. DISCHARGE DIAGNOSES: 1. Acute vertigo,likely secondary to labyrinthitis. 2. Acute labyrinthitis. 3. Hypotension, likely secondary to combination of over medication with antihypertensives and volume depletion. 4. Renal insufficiency, likely prerenal, improved. 5. Diabetes mellitus. 6. History of hypertension. 7. Prolonged QT interval, status post automatic implantable cardioverter-defibrillator. 8. Hyperlipidemia. DISCHARGE MEDICATIONS: See medication reconciliation list. DISCHARGE INSTRUCTIONS: The patient discharged home. Follow up with the primary medical doctor, for close monitoring of blood pressure and optimization of antihypertensive regimen as needed,. Nallely Sullivan M.D. I have been assigned to dictate discharge summary on this account and I was not involved in the patient's management. Joan [facility]) N.PRaina DR: ALE JOB#: [id number] CC: [email or web address]
== END 2016-12-16 11:00 | disposition home or self-care (01) | DRG 149 ==
LOC: EMR 18:12 → 2E 18:17 → EDBEDREQ 18:26 → 2E 12-16 01:22
DX: H83.09 Labyrinthitis, unspecified ear (principal); I24.9 Acute ischemic heart disease, unspecified; I95.9 Hypotension, unspecified; Z95.810 Presence of automatic (implantable) cardiac defibrillator; Z88.8 Allergy status to other drugs, medicaments and biological substances; E11.9 Type 2 diabetes mellitus without complications; E78.5 Hyperlipidemia, unspecified; I45.81 Long QT syndrome
CPT/HCPCS: 36415; 71010; 80048; 80053; 80061; 80300; 81003; 82550; 82553; 82962; 83690; 83880; 84443; 84484; 85025; 85610; 85730; 87040; 93005; 93970; J1815

== ENCOUNTER 2017-02-10 20:12 | Emergency (ER) | payer MEDICARE, MEDICAID ==
[~2017-02-10] VITALS: Ht 157.5 cm; Wt 80.7 kg
[2017-02-10] MEDS ORDERED: ZITHROMAX250 MG ORAL (20:55)
[2017-02-10 20:57] VITALS: BP 132/87
--- NOTE | 2017-02-10 21:05 | Emergency Room Report ---
History of Present Illness General Chief Complaint: General Complaint Source: Patient Present Illness HPI Patient is a 51-year-old female who presented after increased cough and difficulty breathing. Patient reported having cough for approximately 10 days. Patient reported having gradual onset of symptoms. Patient reported having initial sore throat for patient had a recent spinal tap at [facility] for similar symptoms.Patient denied any fever. She is not taking any diuretics currently. Allergies: Coded Allergies: SUMATRIPTAN (Verified Allergy, Unknown, 04/18/16) Uncoded Allergies: ARTIFICIAL SWEETNERS (Allergy, Unknown, 04/18/16) Patient History Past Medical History: see triage record Last Menstrual Period: NOT ANYMORE Now: No : 2 Reviewed Nursing Documentation: PMH: Agreed, PSxH: Agreed Nursing Documentation-PMH Hx Hypertension: Yes - X2 AL Hx Pacemaker: Yes - AICD Hx Diabetes: Yes Hx Cancer: No Hx Neurological Problems: No Review of Systems All Other Systems: negative except mentioned in HPI Physical Exam Vital Signs Date Time Temp Pulse Resp B/P Pulse Ox O2 Delivery O2 Flow Rate FiO2 02/10/17 20:23 98.2 76 18 144/92 99 Room Air Sp02 EP Interpretation: reviewed, normal General Appearance: normal inspection, well appearing, no apparent distress, alert, GCS 15, non-toxic Head: atraumatic ENT: normal ENT inspection, hearing grossly normal, normal voice Neck: normal inspection, full range of motion, supple, no bony tend Respiratory: normal inspection, lungs clear, normal breath sounds, no respiratory distress, no retraction, no wheezing Cardiovascular #1: regular rate, rhythm, no edema Gastrointestinal: normal inspection, normal bowel sounds, non tender, soft, no guarding, no hernia Genitourinary: no CVA tenderness Musculoskeletal: normal inspection, back normal, normal range of motion Neurologic: normal inspection, alert, responsive, speech normal Psychiatric: normal inspection, judgement/insight normal, mood/affect normal Skin: normal inspection, normal color, no rash Medical Decision Making Diagnostic Impression: Primary Impression: Bronchitis Additional Impression: Sinusitis ER Course Patient presented for shortness breath. Differential diagnosis included but was not limited to bronchitis, pneumonia, pulmonary embolism, pericarditis, asthma, foreign body. A chest x-ray was ordered due to patient's complaints.A chest x-ray one view interpreted by me showed no evidence of acute infiltrate or cardiomegaly there is no evident pneumothorax or effusion noted. The patient appears to have a sinus infection. Patient was given Tylenol for headache. This appears to have some purulent drainage consistent with bacterial sinus infection and should be treated with antibiotics this time. The patient also additionally has some evidence of bronchitis. The patient is advised to follow up with primary care doctor in 1-2 days. Chest X-Ray Diagnostic Results EP Interpretation: Yes Findings: no consolidation, no effusion, no pneumothorax, no acute cardiopulmonary disease Number of Views: 1 Last Vital Signs Date Time Temp Pulse Resp B/P Pulse Ox O2 Delivery O2 Flow Rate FiO2 02/10/17 20:57 98.6 73 21 132/87 99 Room Air Status: improved Disposition: HOME, SELF-CARE Condition: Stable Scripts Azithromycin* (ZITHROMAX*) 250 Mg Tablet 250 MG ORAL DAILY, #6 TAB 0 Refills Take two tables once daily for 1 day, then one tablet once daily for 4 days. Prov: Ronnie Thorne 02/10/17 Patient Instructions: Acute Bronchitis Ronnie Thorne Feb 10, 2017 21:05
[2017-02-10 21:45] VITALS: BP 136/84
--- NOTE | 2017-02-11 09:31 | Diagnostic Imaging Report ---
Indications: Shortness of breath Technique: Portable AP chest Findings: Comparison: 12/12/2016 Cardiac silhouette remains normal in size. Pulmonary vasculature remains within normal limits. Lungs and pleura remain clear. Aortic arch calcification and ectasia left chest wall pacemaker again noted. IMPRESSION: No evidence of acute disease, unchanged Stable chronic changes as described
== END 2017-02-10 21:45 | disposition home or self-care (01) ==
LOC: EMR 20:47
DX: J20.9 Acute bronchitis, unspecified (principal); J01.90 Acute sinusitis, unspecified; Z88.8 Allergy status to other drugs, medicaments and biological substances; Z91.018 Allergy to other foods; I25.2 Old myocardial infarction; Z95.0 Presence of cardiac pacemaker; E11.9 Type 2 diabetes mellitus without complications; I10 Essential (primary) hypertension
CPT/HCPCS: 71010; 99283